=== PATIENT | female | born 2000 | race Two or more races ===

== ENCOUNTER → 2025-03-19 | Emergency (ER) | payer OTHER ==
[~2025-03-19] VITALS: Ht 162.6 cm; Wt 63.5 kg
[~2025-03-19] MED LIST: NITROFURANTOIN100 MG PO
[2025-03-19 15:30] LABS: BASO % 0.3 % (0.1-1.2); EOS # 0.23 (0.04-0.54); EOS % 3.5 % (0.7-7.0); LYMPH # 1.82 (1.18-3.74); LYMPH % 27.7 % (19.3-53.1); MEAN PLATELET VOLUME 9.20 fl (9.4-12.4); MONO # 0.48 (0.24-0.82); MONO % 7.3 % (4.7-12.5); NEUT # 4.01 (1.56-6.13); NEUT % 60.9 % (34.0-71.1); RED CELL DISTRIBUTION WIDTH 12.2 % (11.6-14.4)
[2025-03-19 15:51] LABS: URINE APPEARANCE Turbid; URINE BILIRRUBIN Negative (NEGATIVE); URINE BLOOD Negative; URINE COLOR Yellow; URINE GLUCOSE Negative (NEGATIVE); URINE KETONE Trace (NEGATIVE); URINE LEUKOCYTE Moderate; URINE NITRATE Negative; URINE PROTEIN Negative (NEGATIVE); URINE UROBILINOGEN 1.0 E.U./dl
[2025-03-19 15:55] LABS: URINE BACTERIA 3819.5 uL (0.0-1933); URINE EPITHELIAL CELLS 85.6 uL (0.0-38.8); URINE RBC 2.3 uL (0.0-20.8); URINE WBC 71.3 uL (0.0-23.2)
[2025-03-19 16:23] LABS: URINE CAST 0.00 uL (0.0-1.40)
[2025-03-19 16:27] LABS: URINE CRYSTALS MODERATE /HPF
== END | disposition home or self-care (01) ==
LOC: ER 13:58
PROVIDERS: Emergency Medicine
DX: O26.891 Other specified pregnancy related conditions, first trimester (principal); R10.2 Pelvic and perineal pain; Z3A.10 10 weeks gestation of pregnancy; Z88.0 Allergy status to penicillin